=== PATIENT | female | born 1965 | race Caucasian/White ===

== ENCOUNTER 2017-06-07 07:56 | Day surgery (SDC) | payer OTHER ==
[~2017-06-07] VITALS: Ht 162.6 cm; Wt 90.7 kg
[2017-06-07 08:37] VITALS: BP 129/94
[2017-06-07 12:39] VITALS: BP 124/75
== END 2017-06-07 11:40 | disposition home or self-care (01) ==
LOC: GI 07:56 → OR 10:30 → GI 11:40
PROVIDERS: Internal Medicine Gastroenterology
PROC: 0DB58ZX Excision of Esophagus, Via Natural or Artificial Opening Endoscopic, Diagnostic (ICD-10-PCS; principal; 2017-06-07 10:30)
PROC: 0DB68ZX Excision of Stomach, Via Natural or Artificial Opening Endoscopic, Diagnostic (ICD-10-PCS; 2017-06-07 10:30)
DX: K21.9 Gastro-esophageal reflux disease without esophagitis (principal); K58.9 Irritable bowel syndrome, unspecified; E66.9 Obesity, unspecified; Z68.34 Body mass index [BMI] 34.0-34.9, adult
CPT/HCPCS: 43235; J1200; J1610; J2250; J2310; J3010; J3490